=== PATIENT | female | born 1935 | race Caucasian/White ===

== ENCOUNTER 2017-10-02 08:57 | Day surgery (SDC) | payer OTHER ==
[~2017-10-02] VITALS: Ht 149.9 cm; Wt 58.2 kg
[~2017-10-02 08:57] MED LIST: AMBI5TAB PO; BUSP5TAB PO; CALTTAB5 PO; ENAL5TAB PO; FISH1000 PO; SIMV20TA PO; SM A81CH PO; TAB-TAB PO; [UNRECOGNIZED DRUG - OTHER] PO
[2017-10-02 09:30] VITALS: BP 190/84; PULSE 101; RESP 20; TEMP 98.1; O2SAT 90
[2017-10-02] MEDS ORDERED: LISI20TA PO (09:47)
[2017-10-02] MEDS ORDERED: SERT-132 PO (09:47)
[2017-10-02] MEDS ORDERED: BUSP10TA PO (09:47)
[2017-10-02] MEDS ORDERED: ZOFR4TAB PO (09:47)
[2017-10-02] MEDS ORDERED: SIMV20TA PO (09:47)
[2017-10-02] MEDS ORDERED: TRAZ100T10 PO (09:47)
[2017-10-02] MEDS ORDERED: ENAL5TAB PO (09:47)
[2017-10-02 10:48] LABS: CREATININE 1.18 MG/DL (0.50-1.00)
[2017-10-02] MEDS ORDERED: IOHEXOL 350 MG/ML 10 ML VIAL (for RAD DIAG) IVCONTRAST ONE (12:33)
--- NOTE | 2017-10-02 13:56 | RADRPT ---
EXAM DATE: 10/02/2017 1:09 PM EDT AGE/SEX: 82 years / Female INDICATIONS: Carotid stenosis. CLINICAL DATA: This is the patient's initial encounter. Patient reports that signs and symptoms have been present for 1 day and indicates a pain score of 0/10. MEDICAL/SURGICAL HISTORY: Cardiovascular disease. Hypertension. Gastroesophageal reflux disease. None. RADIATION DOSE: 9.93 CTDI (mGy) COMPARISON: No prior exams available for comparison. TECHNIQUE: Volumetric scanning was performed using a multirow detector CT scanner during bolus infus ion of 60 ml Omnipaque 350 (iohexol) nonionic water-soluble contrast as a single exam dose. The da ta was postprocessed with a variety of visualization algorithms including full-volume maximum intensi ty projection, multiplanar sliding thin-slab reformation, curved-planar reformation, and surface-rend ering techniques. Using automated exposure control and adjustment of the mA and/or kV according to p atient size, radiation dose was kept as low as reasonably achievable to obtain optimal diagnostic johny lity images. FINDINGS: Aortic Arch: There is a three-vessel origin of the great vessels from the aorta. No evidence of ost ial narrowing Right Carotid: Heavily calcified atherosclerotic plaque involving the carotid bulb extending into th e proximal ICA and ECA. There is a 40% stenosis utilizing NASCET criteria involving the ICA origin. N o ulceration. The more cephalad portion of the extracranial ICA is patent. ECA is stenotic at its alfredo gin. CCA is patent.. Left Carotid: Calcified atherosclerotic plaque is seen involving the carotid bulb extending into the ICA and ECA origin. Utilizing NASCET criteria there is a 40% stenosis of the ICA origin. No ulcerati on. The more cephalad portion of the extracranial ICA and CCA are patent. Vertebrals: The right vertebral artery is dominant.. No stenotic lesions are seen. Enlarged and nodular thyroid gland noted. A degenerative cervical spine. Elevated flow velocities and ICA/CCA ratios have been found to correlate with increased degrees of ve ssel stenosis, calculated as percentage of diameter relative to a normal segment of distal ICA/CCA. CONCLUSION: 1. Calcified plaque generating bilateral 40% ICA origin stenoses. No ulceration. 2. Right vertebral artery is dominant. Both are patent. 3. Multinodular thyroid goiter. Electronically signed by: Mando Chen MD 10/02/2017 1:55 PM EDT
== END 2017-10-02 14:40 | disposition home or self-care (01) ==
LOC: HROP 08:57 → HRIP 09:01 → EDSTATUS 10:00 → HROP 14:30
PROVIDERS: ATTEND Family Medicine
DX: I65.29 Occlusion and stenosis of unspecified carotid artery (principal); I25.10 Atherosclerotic heart disease of native coronary artery without angina pectoris; I10 Essential (primary) hypertension; K21.9 Gastro-esophageal reflux disease without esophagitis; E04.2 Nontoxic multinodular goiter
CPT/HCPCS: 70498; 82565; 84520; 96365; 96366; Q9967

== ENCOUNTER 2017-10-06 09:17 | Outpatient (CLI) | payer OTHER ==
[~2017-10-06 09:17] MED LIST changes: +BUSP10TA PO; +LISI20TA PO; +SERT-132 PO; +TRAZ100T10 PO; +ZOFR4TAB PO
[2017-10-06 10:39] VITALS: BP 185/79; PULSE 90; RESP 18; TEMP 98.1; O2SAT 96
[2017-10-06] MEDS ORDERED: IODIXANOL 320 MG/ML 10 ML VIAL (for Rad CT) IVCONTRAST ONE (13:44)
[2017-10-06 13:45] VITALS: BP 149/71; PULSE 86; RESP 20; O2SAT 96
--- NOTE | 2017-10-06 15:22 | RADRPT ---
EXAM DATE: 10/06/2017 2:15 PM EDT AGE/SEX: 82 years / Female INDICATIONS: Peripheral vascular disease CLINICAL DATA: This is the patient's initial encounter. Patient reports that signs and symptoms have been present for 1 day and indicates a pain score of 0/10. MEDICAL/SURGICAL HISTORY: Hypertension. Gastroesophageal reflux disease. None. RADIATION DOSE: 10.01 CTDI (mGy) COMPARISON: POI, CT ABDOMEN AND PELVIS W/O CONTRAST, 07/23/2017. . TECHNIQUE: Volumetric scanning was performed using a multi-row detector CT scanner during bolus infu berhane of 97 ml Visipaque 320 (iodixanol) nonionic water-soluble contrast as a single exam dose. The data was post processed with a variety of visualization algorithms including full volume maximum int ensity projection, multi-planar sliding thin slab reformation, curved planar reformation, and surface rendering techniques. Using automated exposure control and adjustment of the mA and/or kV according to patient size, radiation dose was kept as low as reasonably achievable to obtain optimal diagnosti c quality images. FINDINGS: Angiographic Findings: Abdominal Aorta: Moderate mixed plaque throughout the abdominal aorta. Focal ulcerated plaque in the immediate infrarenal aorta. Renal Arteries: Single bilateral renal arteries. High-grade stenosis of the left renal artery origin. Mild to moderate stenosis of the right proximal renal artery. Mesenteric Arteries: Mild stenosis of the celiac origin. 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 SMA reconstitutes pr oximally. SADIE is patent and enlarged. Right side: Inflow: Diffusely calcified common iliac artery with focal ulcerative plaque distally near the bifurc ation. Internal and external iliac arteries are patent. Eccentric plaque in the mid to distal common femoral artery with resultant mild stenosis. Outflow: The profunda is patent. SFA is diffusely diseased with long segment severe stenosis in the p roximal thigh and long segment occlusion in the mid to distal thigh. SFA reconstitutes in the distal thigh. Popliteal artery is diffusely diseased with long segment moderate stenosis of the above-knee p opliteal artery secondary to eccentric plaque. Below knee popliteal artery is patent. Runoff: Small caliber three-vessel runoff. Left side: Inflow: Diffusely calcified common iliac artery without significant flow-limiting stenosis. Internal and external iliac arteries are patent. The common femoral artery is patent. Outflow: The profunda is patent. Diffusely calcified SFA with tandem wweg-[id number]-hickjscn stenoses in the distal thigh. Tandem mild stenosis of the proximal above-knee popliteal artery secondary to eccentri c calcified plaque. Below knee popliteal artery is patent. Runoff: Small caliber three-vessel runoff. General Findings: LOWER LUNGS: The visualized lower lungs are clear. LIVER: Diffusely decreased hepatic density without focal mass or intrahepatic ductal dilatation. SPLEEN: Homogeneous density without enlargement. PANCREAS: Unremarkable without mass or calcification. KIDNEYS: Stable punctate nonobstructing calyceal calculus in the inferior pole of the left kidney. K idneys otherwise demonstrate symmetrical enhancement without evidence for hydronephrosis. ADRENAL GLANDS: Stable 2.4 cm left adrenal adenoma. BOWEL/MESENTERY: Small hiatal hernia. Moderate sigmoid and scattered colonic diverticulosis. No sign ificant inflammatory change. No dilated loops of bowel. No free fluid or drainable fluid collections. ABDOMINAL WALL: Intact. RETROPERITONEUM: No evidence of adenopathy in the retrocrural, para-aortic, or deep pelvic regions. BLADDER: Contours are smooth. REPRODUCTIVE: Stable 2.3 cm left adnexal cystic lesion, likely ovarian in etiology. INGUINAL: The inguinal region is unremarkable without evidence of adenopathy. BONY STRUCTURES: Unremarkable. CONCLUSION: 1. No aortic occlusive disease. However, there is a focal ulcerated plaque in the immediate infraren al aorta. 2. No iliac inflow stenosis. There is an ulcerated plaque in the distal left common iliac artery. 3. Diffusely diseased right SFA with long segment occlusion the mid to distal thigh. 4. Diffusely calcified left SFA with tandem xfle-ls-bbhevskd stenoses in the distal thigh. 5. Moderate right and mild left above-knee popliteal artery stenoses. 6. Small caliber three-vessel runoff bilaterally. 7. Stable ancillary findings, as above. Electronically signed by: Tomás Prater MD 10/06/2017 3:21 PM EDT
== END 2017-10-06 14:40 | disposition home or self-care (01) ==
LOC: HRAD 09:17 → HRIP 10:40 → HRAD 14:40
PROVIDERS: ATTEND Family Medicine
DX: I65.22 Occlusion and stenosis of left carotid artery (principal); I73.9 Peripheral vascular disease, unspecified
CPT/HCPCS: 75635; Q9967